=== PATIENT | male | born 1995 ===

== ENCOUNTER 2018-10-30 20:58 | Emergency (ER) | payer OTHER ==
[~2018-10-30] VITALS: Ht 200.7 cm; Wt 90.7 kg
[~2018-10-30 20:58] MED LIST: CODACEE120 PO; DIPH12.5EL PO; HYDACE5 PO; LORA1 PO; RXCODACESY PO; RXHYDACE PO
== END 2018-10-30 22:43 | disposition left against medical advice (07) ==
LOC: ER 20:58
DX: Z53.21 Procedure and treatment not carried out due to patient leaving prior to being seen by health care provider (principal)
CPT/HCPCS: 71046

== ENCOUNTER 2023-03-05 09:58 | Emergency (ER) | payer OTHER ==
[~2023-03-05] VITALS: Ht 203.2 cm; Wt 77.1 kg
[2023-03-05 10:05] VITALS: BP 154/94
== END 2023-03-05 12:19 | disposition home or self-care (01) ==
LOC: ER 09:58
DX: J02.9 Acute pharyngitis, unspecified (principal); Z91.018 Allergy to other foods
CPT/HCPCS: 70360; J1100